=== PATIENT | female | born 1975 | race Caucasian/White ===

== ENCOUNTER 2017-10-27 08:29 | Emergency (ER) | payer OTHER ==
[~2017-10-27] VITALS: Ht 165.1 cm; Wt 90.7 kg
[~2017-10-27 08:29] MED LIST: AMOXIL500 MG PO; BACTRIM DS 8001 TAB PO; CHERATUSSIN AC118 M1 PO; CYCLOBENZAPRINE5 M2 PO; DELTASONE20 MG PO; FIORICET 50-301 EACH PO; FLEXERIL10 MG PO; LEVOTHYROXIN0.025 M1 PO; LEVOTHYROXIN0.025 MG PO; LEVOTHYROXINE0.2 M2 PO; LEVOTHYROXINE0.2 MG PO; MOBIC 15MG15 MG PO; NAPROSYN500 M1 PO; PERCOCET 325 MG1 TA2 PO; PERCOCET 325 MG1 TAB PO; PROVENTIL HFA6.7 GM INH; ZITHROMAX250 M2 PO
[2017-10-27 08:32] VITALS: BP 135/81
--- NOTE | 2017-10-27 08:35 | ED DYSPNEA/ASTHMA COMPLAINT ---
History of Present Illness General Chief Complaint: Dyspnea (COPD, CHF, Other) Stated Complaint: SOB Source: patient, family Exam Limitations: no limitations Vital Signs & Intake/Output Vital Signs & Intake/Output Vital Signs Date Time Temp Pulse Resp B/P B/P Pulse O2 O2 Flow FiO2 Mean Ox Delivery Rate 10/27 0911 97 10/27 0832 98.2 88 18 135/81 94 Allergies Coded Allergies: zolmitriptan (From Zomig) (MIGRAINE HEADACHE 11/14/15) Reconcile Medications Albuterol Sulfate (Proventil Hfa) 90 MCG HFA.AER.AD 2 PUF INH Q4 SOB Amoxicillin (Amoxil) 500 MG CAP 1 TAB PO TID INFECTION Azithromycin (Zithromax) 250 MG TABLET 1 DP PO AD BRONCHITIS 2 the first day followed by 1 for days 2-5 Benzonatate (Tessalon Perle) 100 MG CAPSULE 1 CAP PO TID PRN COUGH Butalb/Acetaminophen/Caffeine (Fioricet 50-300-40 MG Capsule) 50 MG-300 MG-40 MG CAPSULE 1-2 TAB PO Q6P PRN headache Codeine Phosphate/Guaifenesi (Cheratussin AC Syrup) 10 MG-100 MG/5 ML LIQUID 5 -10 ML PO Q6P PRN COUGH CYCLOBENZAPRINE HCL (Flexeril) 10 MG TABLET 1 TAB PO Q8H PRN spasm/pain Avoid operating motor vehicle or heavy machinery Cyclobenzaprine HCl 5 MG TABLET 1 TAB PO TIDPRN PRN MUSCLE SPASMS Ipratropium/Albuterol Sulfate (Combivent Respimat Inhal [place]) 20 MCG-100 MCG/ ACTUATION MIST.INHAL 2 PUFF INH Q6 PRN ASTHMA Levothyroxine Sodium 0.2 MG TAB 1 TAB PO DAILY AC THYROID (Reported) Levothyroxine Sodium 0.025 MG TAB 2 TAB PO DAILY AC THYROID (Reported) Levothyroxine Sodium 200 MCG TABLET 1 TAB PO DAILY hypothyroid Levothyroxine Sodium 25 MCG TABLET 2 TAB PO DAILY hypothyroid Meloxicam (Mobic 15MG) 7.5 MG TABLET 1 TAB PO DAILY PRN PAIN/INFLAMMATION Naproxen (Naprosyn) 500 MG TABLET 1 TAB PO BID PRN RACHEL AND INFLAMMATION OXYCODONE HCL/ACETAMINOPHEN (Percocet 5-325 MG Tablet) 325 MG/5 MG TAB 1 TAB PO Q4-6 PRN PRN PAIN OXYCODONE HCL/ACETAMINOPHEN (Percocet 10-325 MG Tablet) 325 MG/10 MG TAB 1 TAB PO Q4-6 PRN PAIN Prednisone (Deltasone) 20 MG TABLET 3 TAB PO DAILY BRONCHITIS Prednisone 10 MG TABLET 1 TAB PO AD INFLAMMATION DAY1/DAY2 FOUR TABS DAILY DAY3/DAY4 THREE TABS DAILY DAY5/DAY6 TWO TABS DAILY DAY 7 ONE TABS Sulfamethoxazole/Trimethopri (Bactrim Ds 800 MG-160 MG) 1 TAB TAB 1 TAB PO BID INFECTION Triage Nurses Notes Reviewed? yes Onset: Gradual Duration: constant Timing: recent history Severity: moderate HPI: Patient is a 42-year-old female with past medical history of asthma who is AN every day smoker migraines hyperlipidemia and hypothyroidism who presents emergency room with a 5 day history of wheezing and nonproductive cough shortness of breath at night Patient was evaluated approximately one month ago in the emergency room for similar complaints where symptoms improved Patient denies any fever chills chest pain arm pain jaw pain nausea vomiting hemoptysis leg swelling (Deuce Sanchez) Past History Travel History Traveled to [place] past 21 day No Medical History Any Pertinent Medical History? see below for history Neurological: migraine EENT: NONE Cardiovascular: hyperlipidemia Respiratory: NONE Gastrointestinal: NONE Hepatic: NONE Renal: NONE Musculoskeletal: NONE Psychiatric: NONE Endocrine: hypothyroidism Surgical History Surgical History: non-contributory Psychosocial History What is your primary language Libyan Family History Hx Contributory? No (Deuce Sanchez) Review of Systems Review of Systems Constitutional: Reports: no symptoms. EENTM: Reports: no symptoms. Respiratory: Reports: see HPI. Cardiovascular: Reports: no symptoms. GI: Reports: no symptoms. Genitourinary: Reports: no symptoms. Musculoskeletal: Reports: no symptoms. Skin: Reports: no symptoms. Neurological/Psychological: Reports: no symptoms. Hematologic/Endocrine: Reports: no symptoms. Immunologic/Allergic: Reports: no symptoms. All Other Systems: Reviewed and Negative (Deuce Sanchez) Physical Exam Physical Exam General Appearance: no apparent distress, alert, obese Head: atraumatic Eyes: Bilateral: normal appearance. Ears, Nose, Throat: normal pharynx, normal ENT inspection, hearing grossly normal Neck: supple Respiratory: no respiratory distress, wheezing Cardiovascular: regular rate/rhythm Gastrointestinal: normal bowel sounds, soft, non-tender Extremities: normal inspection Neurologic/Psych: no motor/sensory deficits, awake, alert Skin: intact, normal color, warm/dry Core Measures ACS in differential dx? No CVA/TIA Diagnosis No Sepsis Present: No Sepsis Focused Exam Completed? No (Keenan RICHARD,Deuce) Progress Differential Diagnosis: asthma, AMI, bronchitis, costochondritis, CHF, COPD, musculoskeletal pain, pericarditis, pulmonary embolism, pneumonia, pneumothorax, rib fracture, unstable angina Plan of Care: Orders Procedure Date/time Status XRY-CHEST XRAY, TWO VIEWS 10/27 841 Active Patient upon initial examination was oxygen saturation 95% beginning clear and complete sentences, no respiratory distress noted bilateral expiratory wheezing She was strongly advised to discontinue smoking and to establish pulmonology Steroids and nebulizer will be administered Patient also is describing waking up in the middle of night difficulty breathing where due to her obesity and respiratory disease in which she was strongly advised to follow-up with pulmonology for concerns of sleep apnea Chest x-ray was ordered unremarkable acute findings, after nebulizer was administered patient had complete resolution of wheezing On discharge patient looks well distress and will comply with discharge instructions and had no questions. Diagnostic Imaging: Viewed by Me: Radiology Read. Radiology Impression: no acute abnormality, no fracture CXR Impression: no acute abnormality, no infiltrates Initial ED EKG: none Comments: PATIENT: EVA CALERO PRESENT AGE: 42 PATIENT ACCOUNT NO: [id number] : 73 LOCATION: [facility] ORDERING PHYSICIAN: Deuce RICHARD SERVICE DATE: 10/27/17 EXAM TYPE: RAD - XRY-CHEST XRAY, TWO VIEWS EXAMINATION: XR CHEST CLINICAL INFORMATION: Wheezing. Shortness of breath. COMPARISON: Chest radiograph 12:30 07/04/2011. TECHNIQUE: 2 views of the chest were obtained. FINDINGS: Lungs are clear and well expanded. No focal consolidative disease, pleural effusion, or pneumothorax. The cardiac silhouette and upper mediastinal contours are normal. No acute osseous finding. IMPRESSION: Unremarkable chest radiograph. No consolidative disease or effusion. DICTATED BY: William Liu MD DATE/TIME DICTATED:10/27/17907 HEARING THERAPY DIRECTOR:NICKI DATE/TIME TRANSCRIBED:10/27/17907 (Deuce Sanchez) Departure Departure Disposition: HOME OR SELF CARE Condition: Stable Clinical Impression Primary Impression: Asthma Secondary Impressions: Sleep apnea Referrals: [facility] NURSE,Elisa (PCP/Family) Jose Cosme MD Additional Instructions: As discussed please discontinue smoking, begin the prescription of prednisone tomorrow as you have received this medication emergency room today, begin the prescription of Combivent inhaler for wheezing, and begin the prescription Tessalon Perles for cough, on Monday please follow up and establish pop singer Dr. Cosme. Prescriptions waiting at [facility]. If symptoms worsen or if he develop a new concerning symptom return to emergency room Departure Forms: Customer Survey General Discharge Information Prescriptions: Current Visit Scripts Prednisone 1 TAB PO AD #19 TAB DAY1/DAY2 FOUR TABS DAILY DAY3/DAY4 THREE TABS DAILY DAY5/DAY6 TWO TABS DAILY DAY 7 ONE TABS Ipratropium/Albuterol Sulfate (Combivent Respimat Inhal [place]) 2 PUFF INH Q6 PRN ASTHMA #1 UNIT Benzonatate (Tessalon Perle) 1 CAP PO TID PRN COUGH #21 CAP (Deuce Sanchez) PA/JOB SUPERINTENDENT Co-Sign Statement Statement: ED Attending supervision documentation- [] I saw and evaluated the patient. I have also reviewed all the pertinent lab results and diagnostic results. I agree with the findings and the plan of care as documented in the PA's/JOB SUPERINTENDENT's documentation. [X] I have reviewed the ED Record and agree with the PA's/JOB SUPERINTENDENT's documentation. [] Additions or exceptions (if any) to the PAs/JOB SUPERINTENDENT's note and plan are summarized below: [] (Lisa PALACIOS,[place]) Critical Care Note Critical Care Note Critical Care Time: non-applicable (Deuce Sanchez)
[2017-10-27] MEDS ORDERED: COMBIVENT RESPIM4 GM INH (08:49)
[2017-10-27] MEDS ORDERED: TESSALON PERLE100 M1 PO (08:49)
[2017-10-27] MEDS ORDERED: PREDNISONE10 M2 PO (08:49)
--- NOTE | 2017-10-27 09:12 | RADIOLOGY REPORT ---
EXAMINATION: XR CHEST CLINICAL INFORMATION: Wheezing. Shortness of breath. COMPARISON: Chest radiograph 12:30 07/04/2011. TECHNIQUE: 2 views of the chest were obtained. FINDINGS: Lungs are clear and well expanded. No focal consolidative disease, pleural effusion, or pneumothorax. The cardiac silhouette and upper mediastinal contours are normal. No acute osseous finding. IMPRESSION: Unremarkable chest radiograph. No consolidative disease or effusion.
== END 2017-10-27 09:52 ==
LOC: ERH 08:29
DX: J45.909 Unspecified asthma, uncomplicated (principal); G47.30 Sleep apnea, unspecified; F17.200 Nicotine dependence, unspecified, uncomplicated
CPT/HCPCS: 1263; 71046; 96374; J2930